=== PATIENT | male | born 1955 | race Caucasian/White ===

== ENCOUNTER 2019-01-23 20:47 | Inpatient (IN) | payer MEDICARE ==
[~2019-01-23] VITALS: Ht 188 cm; Wt 117.9 kg
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
--- NOTE | 2019-01-23 21:01 | NUR ---
URINE COLLECTED AND SENT TO LAB
[2019-01-23 21:25] LABS: APPEARANCE,URINE Clear (CLEAR); BILIRUBIN,URINE Negative (NEGATIVE); BLOOD, URINE Small Ery/uL (NEGATIVE); COLOR,URINE Yellow (YELLOW); KETONES,URINE Negative (NEGATIVE); LEUKOCYTE ESTERASE ,URINE Negative (NEGATIVE); NITRITE, URINE Negative (NEGATIVE); PROTEIN,URINE Negative (NEGATIVE); UGLUCOSE Negative (NEGATIVE); UROBILINOGEN,URINE 0.2 EU/dL (0.2)
[2019-01-23 21:35] LABS: BACTERIA,URINE Few /HPF (None Seen); SQUAMOUS EPITHELIAL CELL,UR Few /HPF (None Seen); WBC,URINE 0-2 /HPF (0-3)
[2019-01-23 21:43] LABS: BASOPHILS # (AUTO) 0.1 /CMM (0.0-0.2); BASOPHILS % (AUTO) 0.7 % (0.0-2.0); EOSINOPHILS % (AUTO) 1.8 % (0.0-6.0); HEMATOCRIT 51 % (39-51); HEMOGLOBIN 17.6 g/dL (13.5-17.5); LYMPHOCYTES # (AUTO) 2.1 /CMM (0.8-4.8); LYMPHOCYTES % (AUTO) 25.3 % (20.0-44.0); MEAN CORPUSCULAR HGB CONC 35 g/dl (31.0-36.0); MEAN CORPUSCULAR VOLUME 95 fL (80-96); MONOCYTES # (AUTO) 1.3 /CMM (0.1-1.30); MONOCYTES % (AUTO) 16.2 % (2.0-12.0); NEUTROPHILS # (AUTO) 4.7 /CMM (1.8-8.9); PLATELET COUNT (AUTO) 211 /CMM (150-450); RED BLOOD CELL COUNT(AUTO) 5.33 MIL/uL (4.5-6.0); WHITE BLOOD COUNT (AUTO) 8.3 K/uL (4.3-11.0)
[2019-01-23 21:51] LABS: ALCOHOL, BLOOD < 3 mg/dL (0-0); CARBON DIOXIDE 26 mmol/L (21-32); CHLORIDE 103 mmol/L (98-107); CREATININE 0.9 mg/dL (0.6-1.3); GLUCOSE 115 mg/dL (74-106); POTASSIUM 3.9 mmol/L (3.5-5.1); SODIUM SERUM 138 mmol/L (136-145); UREA NITROGEN, BLOOD 20 mg/dL (7-18)
[2019-01-23 22:06] LABS: THYROID STIMULATING HORMONE 1.686 uIU/mL (0.358-3.74)
--- NOTE | 2019-01-23 22:09 | NUR ---
CALLED TRACK MANAGER RN PERIOPERATIVE ADAN COOL VOICEMAIL.
--- NOTE | 2019-01-23 22:27 | NUR ---
SILVINA SARAH [id number]
--- NOTE | 2019-01-23 23:21 | NUR ---
GAVE REPORT TO SHAINA ABREU FOR RYLAN
--- NOTE | 2019-01-24 00:45 | NUR ---
PT TRANSFERRED TO [facility] VIA WHEELCHAIR
[2019-01-24] MEDS ORDERED: LORAZEPAM 0.5 MG TABLET PO PRN (01:00)
[2019-01-24] MEDS ORDERED: ACETAMINOPHEN 325 MG TABLET PO PRN (01:00)
[2019-01-24] MEDS ORDERED: MAG HYDROX/AL HYDROX/SIMETH 30 ML UDC PO PRN (01:00)
[2019-01-24] MEDS ORDERED: MAGNESIUM HYDROXIDE 30 ML UDC PO PRN (01:00)
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
[2019-01-24] MEDS ORDERED: TAMS-12 PO (01:43)
[2019-01-24] MEDS ORDERED: ASPI-605 PO (01:43)
[2019-01-24] MEDS ORDERED: OLAN5TAB3 PO (01:44)
[2019-01-24] MEDS ORDERED: CARV3.122 PO (03:42)
[2019-01-24 08:00] VITALS: BP 138/97
[2019-01-24] MEDS: NICOTINE PATCH (21MG) 21 MG PATCH.TD24 TD SCH (09:00)
--- NOTE | 2019-01-24 09:03 | NUR ---
GPS/RN PT REFUSED NICOTINE PATCH OFFERED X3. PT CLAIMED TO BE GERDA VÁSQUEZ
[2019-01-24] MEDS ORDERED: OLANZAPINE 5 MG/TAB.RAPDIS SL ONE (13:00)
--- NOTE | 2019-01-24 13:55 | NUR ---
GPS/RN PT TOOK THE SCHEDULED MEDICATION WITH ENCOURAGEMENT
[2019-01-24 16:00] VITALS: BP 140/76
[2019-01-24 20:08] VITALS: BP 144/88
[2019-01-24] MEDS: OLANZAPINE 5 MG/TAB.RAPDIS PO SCH (21:16)
[2019-01-25 08:00] VITALS: BP 154/82
[2019-01-25 08:52] LABS: BASOPHILS % (AUTO) 0.5 % (0.0-2.0); EOSINOPHILS % (AUTO) 1.8 % (0.0-6.0); HEMATOCRIT 52 % (39-51); HEMOGLOBIN 17.4 g/dL (13.5-17.5); LYMPHOCYTES # (AUTO) 2.1 /CMM (0.8-4.8); LYMPHOCYTES % (AUTO) 28.1 % (20.0-44.0); MEAN CORPUSCULAR HGB CONC 34 g/dl (31.0-36.0); MEAN CORPUSCULAR VOLUME 96 fL (80-96); MONOCYTES # (AUTO) 0.8 /CMM (0.1-1.30); MONOCYTES % (AUTO) 10.5 % (2.0-12.0); NEUTROPHILS # (AUTO) 4.4 /CMM (1.8-8.9); NEUTROPHILS % (AUTO) 59.1 % (43.0-81.0); PLATELET COUNT (AUTO) 203 /CMM (150-450); RED BLOOD CELL COUNT(AUTO) 5.35 MIL/uL (4.5-6.0); WHITE BLOOD COUNT (AUTO) 7.4 K/uL (4.3-11.0)
[2019-01-25 09:00] LABS: ALBUMIN 3.1 g/dL (3.4-5.0); BILIRUBIN,TOTAL 0.8 mg/dL (0.2-1.0); CALCIUM, SERUM 8.8 mg/dL (8.5-10.1); CREATININE 0.8 mg/dL (0.6-1.3); POTASSIUM 4.3 mmol/L (3.5-5.1); TOTAL PROTEIN, SERUM 6.8 g/dL (6.4-8.2)
[2019-01-25] MEDS: NICOTINE PATCH (21MG) 21 MG PATCH.TD24 TD SCH (09:00)
[2019-01-25 09:04] LABS: CHOLESTEROL 173 mg/dL (<200); HDL CHOLESTEROL 32 mg/dL (40-60); LDL 122 mg/dL (0-99); TRIGLYCERIDES 139 mg/dL (30-150)
[2019-01-25 16:00] VITALS: BP 121/79
[2019-01-25 20:06] VITALS: BP 132/85
[2019-01-25] MEDS: OLANZAPINE 5 MG/TAB.RAPDIS PO SCH (21:23)
[2019-01-25] MEDS: TEMAZEPAM 7.5 MG CAPSULE PO PRN (21:38)
[2019-01-26 08:00] VITALS: BP 132/73
[2019-01-26] MEDS: NICOTINE PATCH (21MG) 21 MG PATCH.TD24 TD SCH (08:42)
--- NOTE | 2019-01-26 12:42 | NUR ---
Initial Discharge Plan: Pt currently resides at [facility] located at [address] [place] [address]; ([phone]). Per pt, he would like to return. SW will work with the pt and the MD regarding appropriate discharge planning. SW will form a safe and proper discharge.
--- NOTE | 2019-01-26 14:34 | NUR ---
Group Note: Pt refused to participate in group therapy when prompted by the SW because he wanted to remain asleep in his room.
[2019-01-26 16:00] VITALS: BP 120/79
[2019-01-26 19:53] VITALS: BP 148/83
[2019-01-26] MEDS: OLANZAPINE 5 MG/TAB.RAPDIS PO SCH (21:27)
[2019-01-26] MEDS: TEMAZEPAM 7.5 MG CAPSULE PO PRN (21:40)
[2019-01-27 08:00] VITALS: BP 143/87
[2019-01-27] MEDS: NICOTINE PATCH (21MG) 21 MG PATCH.TD24 TD SCH (08:07)
--- NOTE | 2019-01-27 13:45 | NUR ---
RN-CO: DR Capri BEAR MADE AWARE REGARDING RECONCILIATION OF HOME MEDS.
--- NOTE | 2019-01-27 14:05 | NUR ---
RN-CO: PAGED DR RINCON TO RECONCILE HOME MEDICATIONS.
[2019-01-27] MEDS: ASPIRIN EC 81 MG TABLET.DR PO SCH (15:30)
--- NOTE | 2019-01-27 15:31 | NUR ---
RN-CO: PATIENT REFUSED ASPIRIN AND NICONTINE PATCH,L TODAY.
[2019-01-27 16:00] VITALS: BP 130/78
--- NOTE | 2019-01-27 16:08 | NUR ---
Group Note: Pt refused to participate in group therapy when prompted by the SW because he wanted to remain asleep in his room.
[2019-01-27] MEDS: CARVEDILOL 3.125 MG TABLET PO SCH (16:48)
[2019-01-27] MEDS: TAMSULOSIN 0.4 MG CAP.SR.24H PO SCH (17:23)
--- NOTE | 2019-01-27 19:30 | NUR ---
GPS RN NOTE, RECEIVED PATIENT AWAKE AND IN ROOM NO S/S OR COMPLAINTS OF PAIN AT THIS TIME. PATIENT IS DISPLAYING NO S/S OF APPARENT DISTRESS AT THIS TIME. PATIENT BREATHING IS UNLABORED WITH EQUAL RISE AND FALL OF THE CHEST. PATIENT IS ALERT AND ORIENTED X 3 ON ROOM AIR WITH A SPO2 OF 94%. PATIENT IS BRIGHT, DISORGANIZED, ANXIOUS, COOPERATIVE, DEMANDING, AND NEEDS REORIENTATION. PATIENT DENIES SUICIDE AND HOMICIDAL IDEATIONS AT THIS TIME. PATIENT ASSISTED WITH TURNING AND REPOSITIONING Q2HR AND PRN FOR COMFORT AND CIRCULATION. PATIENT HAS NO NEEDS AT THIS TIME. PATIENT EDUCATED ON THE USE OF THE CALL SOLIS. PATIENT BED SIDE RAILS ARE UP X 2 FOR SAFETY, BED IS LOCKED AND LOW. WILL CONTINUE TO MONITOR AND MAINTAIN SAFETY Q15 MIN WITH THE HELP OF STAFF.
[2019-01-27 19:52] VITALS: BP 121/83
[2019-01-27] MEDS: OLANZAPINE 5 MG/TAB.RAPDIS PO SCH (21:29)
--- NOTE | 2019-01-27 21:30 | NUR ---
GPS RN NOTE, PATIENT REFUSED ZYPREXA 15MG PO HS. OFFERED ZYPREXA THREE TIME AND STILL PATIENT REFUSED STATING, " I DON'T WANT IT TONIGHT I TOOK MEDICATION EARLY TODAY, NOW LEAVE MY ALONE ". EDUCATED THIS PATIENT ON THE RISKS AND BENEFITS OF TAKING AND REFUSING ZYPREXA. WILL CONTINUE TO MONITOR THIS PATIENT.
[2019-01-28 08:00] VITALS: BP 122/78
[2019-01-28] MEDS: ASPIRIN EC 81 MG TABLET.DR PO SCH (09:00)
[2019-01-28] MEDS: CARVEDILOL 3.125 MG TABLET PO SCH (09:00)
[2019-01-28] MEDS: NICOTINE PATCH (21MG) 21 MG PATCH.TD24 TD SCH (09:00)
--- NOTE | 2019-01-28 15:21 | NUR ---
Group note: Pt attended a group session on 01/28/19 at 1:30PM discussing the topic of their substance abuse/abusing prescription medication as well as the importance of being compliant with their medications. 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 But recently, I started drinking again because of all of my neighbors around me were drinking. I am not going to use drugs again though. O: Pt was present during the group session and was attentive and cooperative. Pt appeared to be in a euthymic mood and presented with a calm affect. Pt was wearing his sunglasses throughout the group so SW was unable to determine whether or not he was maintaining appropriate eye contact. A: Pt expressed the importance of him remaining sober because he stated that his life became negatively impacted when he was using substances. Pt gained awareness that he cannot let social pressures impact him into using and going back on his sobriety. Pt expressed that he understands his limits but also realized that it will benefit him to remain compliant with his medications. P: Pt will continue milieu treatment and medication stabilization.
[2019-01-28 16:00] VITALS: BP 129/76
[2019-01-28] MEDS: TAMSULOSIN 0.4 MG CAP.SR.24H PO SCH (18:55)
--- NOTE | 2019-01-28 19:30 | NUR ---
GPS RN NOTE, RECEIVED PATIENT AWAKE AND IN ROOM NO S/S OR COMPLAINTS OF PAIN AT THIS TIME. PATIENT IS DISPLAYING NO S/S OF APPARENT DISTRESS AT THIS TIME. PATIENT BREATHING IS UNLABORED WITH EQUAL RISE AND FALL OF THE CHEST. PATIENT IS ALERT AND ORIENTED X 3 ON ROOM AIR WITH A SPO2 OF 93%. PATIENT IS BRIGHT, DISORGANIZED, ANXIOUS, COOPERATIVE, GRANDIOSE, AND NEEDS REORIENTATION. PATIENT DENIES SUICIDE AND HOMICIDAL IDEATIONS AT THIS TIME. PATIENT ASSISTED WITH TURNING AND REPOSITIONING Q2HR AND PRN FOR COMFORT AND CIRCULATION. PATIENT HAS NO NEEDS AT THIS TIME. PATIENT EDUCATED ON THE USE OF THE CALL SOLIS. PATIENT BED SIDE RAILS ARE UP X 2 FOR SAFETY, BED IS LOCKED AND LOW. WILL CONTINUE TO MONITOR AND MAINTAIN SAFETY Q15 MIN WITH THE HELP OF STAFF.
[2019-01-28 20:01] VITALS: BP 139/86
--- NOTE | 2019-01-28 21:51 | NUR ---
GPS RN NOTE, PATIENT HAS A COMPLAINT OF LOWER BACK PAIN AT 6 OUT OF 10 ON THE PAIN SCALE AND IS REQUESTING PERCOCET AT THIS TIME. PATIENT VITAL SIGNS ARE STABLE. GAVE PERCOCET 5/325 1 UD TAB PO Q4HR PRN ORDERED. WILL REASSESS PAIN AND I WILL CONTINUE TO MONITOR THIS PATIENT.
[2019-01-28] MEDS: OLANZAPINE 5 MG/TAB.RAPDIS PO SCH (22:08)
[2019-01-29 08:00] VITALS: BP 125/65
[2019-01-29] MEDS: NICOTINE PATCH (21MG) 21 MG PATCH.TD24 TD SCH (09:00)
[2019-01-29] MEDS: ASPIRIN EC 81 MG TABLET.DR PO SCH (09:08)
[2019-01-29] MEDS: CARVEDILOL 3.125 MG TABLET PO SCH (09:09)
--- NOTE | 2019-01-29 15:54 | NUR ---
SW called the [facility] Director, Carmella Martínez ([phone]), and left a message on her voicemail stating that the pt is going to be discharged tomorrow and the SW would like to speak to her regarding the discharge.
[2019-01-29 16:00] VITALS: BP 111/66
[2019-01-29] MEDS: TAMSULOSIN 0.4 MG CAP.SR.24H PO SCH (17:07)
[2019-01-29 20:00] VITALS: BP 139/75
[2019-01-29] MEDS: OLANZAPINE 5 MG/TAB.RAPDIS PO SCH (21:26)
--- NOTE | 2019-01-30 08:26 | NUR ---
Group Note: FRAN prompted pt to participate in group therapy. Pt refused to participate in group therapy when prompted by the FRAN because he feels groups are a waste on time and are "stupid." Addendum: 01/30/19 at 0830 by VIRGILIO PETERS GROUP date was 01/29/19 at 2:00pm.
[2019-01-30] MEDS: NICOTINE PATCH (21MG) 21 MG PATCH.TD24 TD SCH (08:29)
[2019-01-30] MEDS: ASPIRIN EC 81 MG TABLET.DR PO SCH (08:29)
[2019-01-30] MEDS: CARVEDILOL 3.125 MG TABLET PO SCH (08:29)
[2019-01-30 08:35] VITALS: BP 117/68
--- NOTE | 2019-01-30 10:02 | NUR ---
DR. MCDANIELS GAVE AN ORDER TO D/C HOLD AND D/C TO [facility] AND TO FOLLOW UP WITH PSYCH AND MEDICAL DOCTORS.
--- NOTE | 2019-01-30 10:15 | NUR ---
FRAN called [facility] ([phone]) and left a message stating that she would like to speak to someone at the nursing home about the pt being discharged today. FRAN left her number and will try again later if a call is not returned.
--- NOTE | 2019-01-30 11:10 | NUR ---
SW conducted a substance abuse intervention with the pt for his cannabis use.
--- NOTE | 2019-01-30 13:14 | NUR ---
SW called [facility] ([phone]) and spoke to Hilda, mental health worker, who stated that she wanted to speak to the Director and will be giving the SW a call back regarding the discharge.
--- NOTE | 2019-01-30 14:00 | NUR ---
GPS/RN PT DISCHARGED TO THE [facility] VIA TAXI WITH VOUCHER PROVIDED. PROPERTY RETURNED. PT REFUSED TO SIGN EXIT CARE. PRESCRIPTIONS AND D/C TEACHINGS/INSTRUCTIONS PROVIDED. PT AT THE TIME OF D/C VOICED NO SI OR HI, AMBULATORY , VSS. ACCOMPANIED PT TO THE TAXI.
--- NOTE | 2019-01-30 14:34 | NUR ---
[place] [employer] Clerk, Carmella Martínez ([phone]), called the SW and stated that the pt can return and inquired about possible SNF placement in the case of a repeated occurrence. SW provided her with a SNF placement contact.
--- NOTE | 2019-01-30 14:39 | NUR ---
Discharge Note: Pt was discharged to [facility] located at [address], [place]; ([phone]). Pt was transported via taxi at 2PM. SW confirmed this discharge with the Director of [facility], Carmella Martínez ([phone]). Upon discharge, the pt appeared to be in a euthymic mood and presented with a calm affect. Pt denied both suicidal and homicidal ideation as well as auditory and visual hallucinations. Pt signed the homeless waiver and was provided with resources for homelessness as well as substance use. Pt will be under the care of, [facility] located at [address] [place] [address]; , for psychiatric services. Pt will also be under the care of his rhinestone setter, Dr. See, located at [address] [place] [address] [id number], [place] [address]; ; fax: [phone]. Pt has an appointment with Dr. Kothari on 02/03/19 at 2pm.
== END 2019-01-30 14:00 | disposition home or self-care (01) | DRG 885 ==
LOC: ER 20:52 → GPS 23:57
PROVIDERS: ADMIT Psychiatry & Neurology Psychiatry; ATTEND Nurse Practitioner Acute Care
DX: F20.0 Paranoid schizophrenia (principal); E44.1 Mild protein-calorie malnutrition; E87.1 Hypo-osmolality and hyponatremia; I10 Essential (primary) hypertension; E66.9 Obesity, unspecified; I25.10 Atherosclerotic heart disease of native coronary artery without angina pectoris; F17.210 Nicotine dependence, cigarettes, uncomplicated; L60.0 Ingrowing nail; Z91.19 Patient's noncompliance with other medical treatment and regimen; N40.0 Benign prostatic hyperplasia without lower urinary tract symptoms; F29 Unspecified psychosis not due to a substance or known physiological condition; F12.90 Cannabis use, unspecified, uncomplicated; Z68.33 Body mass index [BMI] 33.0-33.9, adult; L60.3 Nail dystrophy; M79.672 Pain in left foot; M79.671 Pain in right foot; E88.09 Other disorders of plasma-protein metabolism, not elsewhere classified; Z95.5 Presence of coronary angioplasty implant and graft
CPT/HCPCS: 36415; 80048-TC; 80053-TC; 80061-TC; 80305; 81000-TC; 84443-TC; 84484-TC; 85025-TC; 87081-TC; G0480